=== PATIENT | female | born 1940 | race Caucasian/White ===

== ENCOUNTER 2022-03-28 08:04 | Emergency (ER) | payer MEDICARE, BC ==
[~2022-03-28] VITALS: Ht 162.6 cm; Wt 72.6 kg
[2022-03-28] MEDS ORDERED: IV NORMAL SALINE 500 ML BAG IV ONE (08:15)
[2022-03-28] MEDS ORDERED: FLUT1BLS13 IH (08:29)
[2022-03-28] MEDS ORDERED: TRAZODONE (08:29)
[2022-03-28] MEDS ORDERED: LEXAPRO (08:29)
[2022-03-28] MEDS ORDERED: ALBU8.5H8 INH (08:29)
--- NOTE | 2022-03-28 08:42 | NUR ---
iv started, patient to CT
--- NOTE | 2022-03-28 08:55 | NUR ---
Krista diaz in ED - 03/28/22 at 0857 by RIMMA patient back from CT. unable to give urine at this time. will encourage oral fluids.
--- NOTE | 2022-03-28 08:57 | NUR ---
Patient returned from CT. Unable to give a urine sample at this time, IV fluids currently running.
[2022-03-28 09:03] LABS: HEMATOCRIT 38.3 % (31.2-41.9); MEAN CORPUSCULAR HEMOGLOBIN 29.5 uug (24.7-32.8); MEAN CORPUSCULAR VOLUME 87.9 fL (75.5-95.3); PLATELET COUNT (AUTO) 146 K/uL (179-408)
[2022-03-28 09:12] LABS: CREATININE 0.8 mg/dL (0.6-1.3); POTASSIUM 3.6 mmol/L (3.5-5.1)
[2022-03-28 09:19] LABS: *BILIRUBIN,URIN NEGATIVE (NEGATIVE); *BLOOD, URINE NEGATIVE (NEGATIVE); *CLARITY,URINE CLEAR (CLEAR); *COLOR,URINE YELLOW (YELLOW); *KETONES,URINE NEGATIVE (NEGATIVE); *UROBILINOGEN,URINE 0.2 E.U./dl (NORMAL); LEUKOCYTE ESTERASE ,URINE 1+ (NEGATIVE); NITRITE, URINE NEGATIVE (NEGATIVE); UGLUCOSE NEGATIVE (NEGATIVE)
[2022-03-28 09:19] LABS: BILIRUBIN,DIRECT 0.2 mg/dL (0.0-0.2); BILIRUBIN,TOTAL 0.6 mg/dL (0.2-1.0); TOTAL PROTEIN, SERUM 6.9 g/dL (6.4-8.2)
[2022-03-28] MEDS ORDERED: MINERAL OIL FLEET ENEMA 133 ML BOTTLE RC ONE ×4 (09:30→11:00)
--- NOTE | 2022-03-28 10:59 | NUR ---
second enema was administered after first enema produced small aamout of bm. tolerated.
[2022-03-28] MEDS ORDERED: POLY17PO4 PO (11:28)
--- NOTE | 2022-03-28 11:40 | NUR ---
patient was able to produce a bm after second enema. IV removed and pressure dressing applied. Patient discharged to home in stable condition. Written and verbal after care instructions given. Patient verbalizes understanding of instructions. Stressed follow up or return to ER for worsening s/s.
[2022-03-28 11:49] LABS: RBC,URINE 0-3 /HPF (0-3); SQUAMOUS EPITHELIAL CELL,UR NONE SEEN /HPF (NONE SEEN)
[2022-03-28 11:50] LABS: BACTERIA,URINE FEW /HPF (NONE SEEN); WBC,URINE 0-3 /HPF (0-3)
== END 2022-03-28 11:42 | disposition home or self-care (01) ==
LOC: ER 08:04
DX: K56.41 Fecal impaction (principal); Z88.2 Allergy status to sulfonamides; K44.9 Diaphragmatic hernia without obstruction or gangrene
CPT/HCPCS: 36415; 83690; 85025; 87086; A4663